=== PATIENT | female | born 1960 | race Caucasian/White ===

== ENCOUNTER 2020-08-05 13:20 | Emergency (ER) | payer MEDICARE, MEDICAID ==
[~2020-08-05] VITALS: Ht 160 cm; Wt 85.5 kg
[~2020-08-05 13:20] MED LIST: AMLO-150 PO; EMPA1TAB30 PO; FURO40TA6 PO; INSU100V8 SQ; POTA99TA24 PO; SERT100T32 PO; Tradjenta PO; furosemide PO; omeprazole PO
--- NOTE | 2020-08-05 14:09 | NUR ---
PER SON, PT HERE FOR DIALYSIS. PT HAS BEEN IN QUARANTINE SINCE 07/23/20. LAST DIALYSIS WAS 07/30/20 AT [facility]. [facility] TOLD PT TO COME TO ED FOR DIALYSIS TODAY AND COMPANY WILL TAKE OVER DIALYSIS ON SUNDAY. COVID TEST DONE 07/28/20. PT REPORTS NAUSEA, VOMITING, BM'S ARE MUCUS. DENIES FEVER, COUGH, DYSPNEA.
--- NOTE | 2020-08-05 14:18 | NUR ---
[facility], DIALYSIS UNIT, NOTIFIED OF PT'S ARRIVAL. PT AWAITING ERP ASSESSMENT AND ORDERS.
--- NOTE | 2020-08-05 14:42 | NUR ---
CURRENT FISTULA LOCATION: RT WRIST. PRIOR FISTULA LOCATION: [facility].
[2020-08-05] MEDS ORDERED: SERT-238 PO (14:45)
--- NOTE | 2020-08-05 15:27 | NUR ---
PT TO RECEIVE DIALYSIS IN ED AND THEN MOST LIKELY BE DC'D
[2020-08-05 15:47] LABS: BASOPHILS % (AUTO) 1 % (0-1); EOSINOPHILS % (AUTO) 3 % (1-7); LYMPHOCYTES % (AUTO) 16 % (22-44); MEAN CORPUSCULAR HGB CONC 34.7 g/dL (32.4-35.8); MEAN PLATELET VOLUME 8.1 fL (7.4-10.4); MONOCYTES % (AUTO) 6 % (2-9); NEUTROPHILS % (AUTO) 75 % (42-75); PLATELET COUNT 614 x10^3/uL (130-400); RED BLOOD COUNT 3.93 x10^6/uL (3.82-5.3); RED CELL DISTRIBUTION WIDTH 13.4 % (9.6-15.2)
[2020-08-05 15:49] LABS: ANION GAP 21 mmol/L (5-15); CALCIUM 10.3 mg/dL (8.5-10.1); CHLORIDE 94 mmol/L (98-107)
[2020-08-05 16:06] LABS: MD NO
--- NOTE | 2020-08-05 16:07 | NUR ---
PT ENDORSED TO BREAK RN.
--- NOTE | 2020-08-05 16:44 | NUR ---
PT REPORT FROM RAÚL PLATT. PT CARE TO BE RESUMED. PT NOW ON HOSPITAL BED. DIALYSIS AT .
--- NOTE | 2020-08-05 18:27 | NUR ---
DIALYSIS STILL AT BS
--- NOTE | 2020-08-05 18:44 | NUR ---
REPORT FROM SEBASTIAN OLSEN, PT CARE TRANSFERRED AT THIS TIME.
--- NOTE | 2020-08-05 20:08 | NUR ---
dialysis completed at this time. sales support associate states that the goal was 3 liters but they were able to remove 2.5 liters. pt resting on alicja, informed that during last little bit of dialysis pt pressures dropped and pt began to feel poorly. pt now nad, pressure stable again, appears comfortable, denies additional questions or needs at this time. wctm. pt to be dc'd shortly
[2020-08-05 20:10] VITALS: BP 184/86
--- NOTE | 2020-08-05 20:24 | NUR ---
Patient given discharge instructions and they have confirmed that they understand the instructions. Patient ambulatory with steady gait BUT PREFERRED WHEELCHAIR OUT TO CAR. PT NAD, DENIES ADDITIONAL QUESTIONS OR NEEDS AT THIS TIME. PT FAMILY MEMBER DRIVING HOME, NO PERSONAL BELONGINGS LEFT IN ROOM AFTER DC.
== END 2020-08-05 20:25 | disposition home or self-care (01) ==
LOC: ED 14:00
DX: E11.22 Type 2 diabetes mellitus with diabetic chronic kidney disease (principal); I12.9 Hypertensive chronic kidney disease with stage 1 through stage 4 chronic kidney disease, or unspecified chronic kidney disease; N18.9 Chronic kidney disease, unspecified; R11.2 Nausea with vomiting, unspecified; R19.7 Diarrhea, unspecified
CPT/HCPCS: 36415; 80048; 82040; 85025; 99283; G0257

== ENCOUNTER 2020-08-07 14:55 | Inpatient (IN) | payer MEDICARE, MEDICAID ==
[~2020-08-07] VITALS: Ht 160 cm; Wt 86.7 kg
[~2020-08-07 14:55] MED LIST changes: +SERT-238 PO
[2020-08-07] MEDS ORDERED: ONDANSETRON 2MG/ML, 2ML IVPush ONE (17:00)
[2020-08-07 17:05] LABS: BASOPHILS % (AUTO) 2 % (0-1); EOSINOPHILS % (AUTO) 3 % (1-7); LYMPHOCYTES % (AUTO) 17 % (22-44); MEAN CORPUSCULAR HEMOGLOBIN 32.2 pg (27.0-34.8); MEAN CORPUSCULAR HGB CONC 34.1 g/dL (32.4-35.8); MEAN PLATELET VOLUME 8.2 fL (7.4-10.4); MONOCYTES % (AUTO) 7 % (2-9); NEUTROPHILS % (AUTO) 71 % (42-75); PLATELET COUNT 403 x10^3/uL (130-400); RED BLOOD COUNT 3.33 x10^6/uL (3.82-5.3); RED CELL DISTRIBUTION WIDTH 13.2 % (9.6-15.2)
[2020-08-07 17:07] LABS: MD NO
[2020-08-07 17:13] LABS: ANION GAP 13 mmol/L (5-15); CALCIUM 10.1 mg/dL (8.5-10.1); CHLORIDE 100 mmol/L (98-107)
[2020-08-07 17:17] LABS: ALANINE AMINOTRANSFERASE 9 U/L (12-78); ALKALINE PHOSPHATASE 146 U/L (45-117); BILIRUBIN,TOTAL 0.7 mg/dL (0.2-1.0); TOTAL PROTEIN 7.8 g/dL (6.4-8.2)
[2020-08-07] MEDS ORDERED: SODIUM CHLORIDE FLUSH 10ML SYR IVF ONE (17:30)
[2020-08-07] MEDS ORDERED: ACETAMINOPHEN 325 MG TABLET PO PRN (19:30)
[2020-08-07] MEDS ORDERED: BISACODYL 10 MG SUPP PR PRN (19:30)
[2020-08-07] MEDS ORDERED: POLYETHYLENE GLYCOL 17 GM PACKET PO PRN (19:30)
[2020-08-07] MEDS ORDERED: DOCUSATE 100 MG CAPSULE PO PRN (19:30)
[2020-08-07] MEDS ORDERED: ONDANSETRON ODT 4 MG PO PRN (19:30)
[2020-08-07] MEDS ORDERED: morphine SULFATE 10 MG/ML, 1ML IVPush PRN (19:30)
[2020-08-07] MEDS ORDERED: OXYcodone IR 5MG TABLET PO PRN (19:30)
[2020-08-07] MEDS ORDERED: hydrALAzine 20 MG/ML, 1ML IVPush PRN (19:30)
[2020-08-07] MEDS ORDERED: ONDANSETRON 2MG/ML, 2ML IVPush PRN (19:30)
[2020-08-07] MEDS ORDERED: PROMETHAZINE 25 MG/ML, 1ML IM PRN (19:30)
[2020-08-07] MEDS ORDERED: ONDANSETRON 2MG/ML, 2ML ONE (19:40)
[2020-08-07] MEDS ORDERED: HEPARIN 5,000 UNITS/ML, 1ML ONE (19:40)
[2020-08-07] MEDS: HEPARIN 5,000 UNITS/ML, 1ML SQ SCH (20:17)
--- NOTE | 2020-08-07 20:40 | NUR ---
report from ed bonilla assuming care of pt at this time
[2020-08-07] MEDS: INSULIN GLARGINE 100 UNITS/ML, PEN SQ-INSULIN SCH (21:03)
--- NOTE | 2020-08-07 21:07 | NUR ---
PT UP TO RESTROOM WITH STEADY GAIT NO ASSIST REQUIRED. SPOKE WITH PT AND DAUGHTER IN LAW ABOUT POC AND INFORMED THEM THAT TO OUR KNOWLEDGE PT WILL NOT GET DIALYSIS IN ER [facility] BUT IS TO BE ADMITTED FOR THIS. BOTH VERBALIZED UNDERSTANDING.
--- NOTE | 2020-08-07 23:04 | NUR ---
REPORT TO IMER OLSEN PT READY FOR TRANSFER TO ROOM 343.
[2020-08-07 23:53] VITALS: BP 196/83
[2020-08-08] MEDS: SERTRALINE 100MG TABLET PO PRN ×2 (00:13→22:38)
[2020-08-08 02:47] VITALS: BP 173/74
[2020-08-08] MEDS: HEPARIN 5,000 UNITS/ML, 1ML SQ SCH ×3 (03:30→20:07)
[2020-08-08 07:27] VITALS: BP 186/77
[2020-08-08 08:42] LABS: ALBUMIN 2.8 g/dL (3.4-5.0); ANION GAP 14 mmol/L (5-15); CALCIUM 9.9 mg/dL (8.5-10.1); CHLORIDE 103 mmol/L (98-107)
[2020-08-08] MEDS: FUROSEMIDE 40 MG TABLET PO SCH (08:44)
[2020-08-08 08:53] LABS: ALANINE AMINOTRANSFERASE 23 U/L (12-78); ALKALINE PHOSPHATASE 210 U/L (45-117); BASOPHILS % (AUTO) 1 % (0-1); BILIRUBIN,TOTAL 0.7 mg/dL (0.2-1.0); CHOL/HDL RATIO 5.2; CHOLESTEROL, TOTAL 181 mg/dL (140-239); EOSINOPHILS % (AUTO) 1 % (1-7); HDL CHOL % 19 % (28-40); HDL CHOLESTEROL (DIRECT) 35 mg/dL (40-60); LDL CHOLESTEROL,CALCULATED 113 mg/dL (54-169); LDL/HDL RATIO 3.2 (0.5-3.0); TOTAL PROTEIN 7.4 g/dL (6.4-8.2); TRIGLYCERIDES 166 mg/dL (50-200); VLDL CHOLESTEROL 33 mg/dL (0-25)
[2020-08-08 09:16] LABS: LYMPHOCYTES % (AUTO) 15 % (22-44); MEAN CORPUSCULAR HEMOGLOBIN 32.3 pg (27.0-34.8); MEAN CORPUSCULAR HGB CONC 34.4 g/dL (32.4-35.8); MEAN PLATELET VOLUME 8.9 fL (7.4-10.4); MONOCYTES % (AUTO) 7 % (2-9); NEUTROPHILS % (AUTO) 76 % (42-75); PLATELET COUNT 345 x10^3/uL (130-400); RED BLOOD COUNT 2.94 x10^6/uL (3.82-5.3); RED CELL DISTRIBUTION WIDTH 13.7 % (9.6-15.2)
[2020-08-08 09:37] LABS: MD SCAN
[2020-08-08] MEDS: INSULIN LISPRO 100 UNITS/ML, PEN SQ-INSULIN SCH ×3 (11:00→19:53)
[2020-08-08 13:31] VITALS: BP 165/75
[2020-08-08] MEDS ORDERED: AMLO-211 PO (15:09)
[2020-08-08 19:48] VITALS: BP 176/67
[2020-08-08] MEDS: INSULIN GLARGINE 100 UNITS/ML, PEN SQ-INSULIN SCH (19:53)
[2020-08-08 22:31] VITALS: BP 186/74
[2020-08-09 01:48] VITALS: BP 168/79
[2020-08-09 03:01] VITALS: BP 156/72
[2020-08-09] MEDS: HEPARIN 5,000 UNITS/ML, 1ML SQ SCH ×2 (04:03→10:57)
[2020-08-09 05:50] LABS: BASOPHILS % (AUTO) 1 % (0-1); EOSINOPHILS % (AUTO) 3 % (1-7); LYMPHOCYTES % (AUTO) 22 % (22-44); MEAN CORPUSCULAR HEMOGLOBIN 32.1 pg (27.0-34.8); MEAN CORPUSCULAR HGB CONC 34.3 g/dL (32.4-35.8); MEAN PLATELET VOLUME 8.7 fL (7.4-10.4); MONOCYTES % (AUTO) 11 % (2-9); NEUTROPHILS % (AUTO) 63 % (42-75); PLATELET COUNT 326 x10^3/uL (130-400); RED BLOOD COUNT 3.14 x10^6/uL (3.82-5.3); RED CELL DISTRIBUTION WIDTH 13.2 % (9.6-15.2)
[2020-08-09 06:01] LABS: ANION GAP 9 mmol/L (5-15); CALCIUM 9.4 mg/dL (8.5-10.1); CHLORIDE 101 mmol/L (98-107); CREATININE 9.97 mg/dL (0.55-1.02)
[2020-08-09 06:17] LABS: MD NO
[2020-08-09] MEDS: INSULIN LISPRO 100 UNITS/ML, PEN SQ-INSULIN SCH ×3 (07:00→16:00)
[2020-08-09 07:41] VITALS: BP 163/80
[2020-08-09] MEDS: FUROSEMIDE 40 MG TABLET PO SCH (08:22)
[2020-08-09] MEDS ORDERED: AMLODIPINE 5 MG TABLET PO ONE (12:00)
[2020-08-09] MEDS: SEVELAMER CARBONATE 800MG TAB PO SCH ×2 (12:31→16:48)
[2020-08-09] MEDS ORDERED: ONDA4TAB7 PO (14:23)
[2020-08-09 14:53] VITALS: BP 138/65
== END 2020-08-09 18:52 | disposition home or self-care (01) | DRG 640 ==
LOC: ED 16:28 → EDIP 18:44 → 3N 23:30
PROVIDERS: ADMIT Internal Medicine; ATTEND Family Medicine
PROC: 5A1D70Z Performance of Urinary Filtration, Intermittent, Less than 6 Hours Per Day (ICD-10-PCS; principal; 2020-08-07)
PROC: 5A1D70Z Performance of Urinary Filtration, Intermittent, Less than 6 Hours Per Day (ICD-10-PCS; 2020-08-09)
DX: E87.70 Fluid overload, unspecified (principal); U07.1 COVID-19; N18.6 End stage renal disease; I12.0 Hypertensive chronic kidney disease with stage 5 chronic kidney disease or end stage renal disease; I16.1 Hypertensive emergency; D63.1 Anemia in chronic kidney disease; E11.22 Type 2 diabetes mellitus with diabetic chronic kidney disease; E78.5 Hyperlipidemia, unspecified; E87.5 Hyperkalemia; I25.10 Atherosclerotic heart disease of native coronary artery without angina pectoris; Z83.3 Family history of diabetes mellitus; Z99.2 Dependence on renal dialysis; Z90.49 Acquired absence of other specified parts of digestive tract; Z98.42 Cataract extraction status, left eye; Z98.41 Cataract extraction status, right eye
CPT/HCPCS: 36415; 80048; 80053; 80061; 82962; 83036; 83605; 83735; 84100; 84443; 85025; 90935; 93005; G0378; J1644; J2405; Q0162; J0360; J1815; J2270; U0003